=== PATIENT | female | born 1940 | race Caucasian/White ===

== ENCOUNTER 2016-12-28 15:16 | Emergency (ER) | payer MEDICAID, OTHER ==
[~2016-12-28] VITALS: Wt 58.0 kg
[~2016-12-28 15:16] MED LIST: FELO5TAB35 PO; SIMV40TA2 PO
[2016-12-28] MEDS ORDERED: ONDANSETRON 4 MG INJ IV STA (19:12)
[2016-12-28] MEDS ORDERED: morphine 4 MG/ML VIAL IV STA (19:12)
[2016-12-28 19:41] LABS: BASOPHIL # 0.1 10^3/ul (0.0-0.1); BASOPHILS % 0.7 % (0.0-2.0); EOSINOPHILS # 0.4 10^3/ul (0.0-0.5); EOSINOPHILS % 3.8 % (0.0-7.0); HEMOGLOBIN 12.9 g/dl (12.0-16.0); LYMPHOCYTES # 3.5 10^3/ul (0.8-2.9); LYMPHOCYTES % 32.3 % (15.0-51.0); MEAN CORPUSCULAR HEMOGLOBIN 29.7 pg (29.0-33.0); MEAN CORPUSCULAR HGB CONC 33.1 g/dl (32.0-37.0); MEAN CORPUSCULAR VOLUME 89.7 fl (82.0-101.0); MEAN PLATELET VOLUME 10.9 fl (7.4-10.4); MONOCYTE # 0.8 10^3/ul (0.3-0.9); MONOCYTES % 7.5 % (0.0-11.0); NEUTROPHILS % 55.4 % (39.0-77.0); PLATELET COUNT 209 10^3/UL (140-415); RED BLOOD COUNT 4.35 10^6/ul (4.20-5.40); RED CELL DISTRIBUTION WIDTH 14.3 % (11.5-14.5); WHITE BLOOD COUNT 10.8 10^3/ul (4.8-10.8)
[2016-12-28 19:44] LABS: ADD UMIC YES; UR ASCORBIC ACID NEGATIVE (NEGATIVE); UR BILIRUBIN (Dip) NEGATIVE (NEGATIVE); UR BLOOD (Dip) 1+ mg/dL (NEGATIVE); UR CLARITY CLEAR (CLEAR); UR COLOR STRAW (YELLOW); UR GLUCOSE (Dip) NEGATIVE (NEGATIVE); UR KETONES (Dip) NEGATIVE (NEGATIVE); UR LEUKOCYTE ESTERASE (Dip) TRACE Leu/ul (NEGATIVE); UR NITRITE (Dip) NEGATIVE (NEGATIVE); UR RBC 1 /HPF (0-5); UR TOTAL PROTEIN (Dip) NEGATIVE (NEGATIVE); UR UROBILINOGEN (Dip) NEGATIVE (NEGATIVE)
[2016-12-28 19:45] VITALS: TEMP 97.5
[2016-12-28 20:04] LABS: ALBUMIN 4.4 g/dl (3.3-4.9); ALBUMIN/GLOBULIN RATIO 1.07; BILIRUBIN,INDIRECT 0.2 mg/dl (0-1.1); BILIRUBIN,TOTAL 0.2 mg/dl (0.2-1.3); CALCIUM 9.5 mg/dl (8.4-10.2); CREATININE 1.12 mg/dl (0.44-1.00); POTASSIUM 4.1 mmol/L (3.5-5.1); TOTAL PROTEIN 8.5 g/dl (6.1-8.1)
[2016-12-28 20:15] LABS: TROPONIN-I 0.021 ng/ml (0.00-0.12)
--- NOTE | 2016-12-28 20:15 | RADRPT ---
PROCEDURE: CT Abdomen and Pelvis without intravenous contrast. CLINICAL INDICATION: Abdominal pain . TECHNIQUE: CT scan of the abdomen and pelvis without intravenous contrast was performed on a multi -slice CT scanner. Coronal and sagittal reformatted images were obtained from the axial source image s. Images were reviewed on a high-resolution PACS workstation. Total DLP = 339.3 mGy-cm. CTDIvol = 6.7 mGy. One or more of the following dose reduction techniques were used: Automated exposure control. Adjustment of the mA and/or kV according to patient size. Use of iterative reconstruction technique. COMPARISON: None. FINDINGS: CT abdomen and pelvis: The lung bases are clear. The heart size is normal in size. The liver is normal in size and densit y without focal mass or intrahepatic biliary dilatation. The spleen is normal in size and homogeneo us in density. The pancreas as visualized is normal. The gallbladder shows no evidence of stones or distension . The adrenal glands are normal. The kidneys are symmetrically unremarkable. No ur olithiasis, obstructive uropathy, or solid mass lesion is seen. The stomach is partially collapsed, but is grossly unremarkable. The small bowels are unremarkable. The colon and rectum are normal. There is sigmoid diverticulosis. There is no evidence of appendici tis or diverticulitis. The pelvic organs are normal. The bladder is normal. There is no abdominal or pelvic adenopathy, free fluid, free air, mass or mesenteric inflammation. The aorta is normal in caliber with calcific atherosclerosis . The osseous structures showing degen erative enthesopathy of the spine. There is old severe compression fracture of the T12 vertebra. The re is no osteolytic or osteoblastic lesions identified.. The soft tissues are within normal limits. Lack of IV and oral contrast limits sensitivity of exam. IMPRESSION: 1. Sigmoid diverticulosis without evidence of diverticulitis. 2. Old compression fracture of the T12 vertebra. 3. Otherwise unremarkable noncontrast CT abdomen and pelvis without acute pathology identified. RPTAT: [facility] .Mark Ledesma MD, MD Date Time Electronically viewed and signed by .Mark Ledesma MD, on 12/28/2016 20:15 .L/
--- NOTE | 2016-12-28 20:55 | RADRPT ---
PROCEDURE: Portable chest x-ray. CLINICAL INDICATION: 76-year of age, female. Abdominal pain. TECHNIQUE: Portable AP view of the chest. COMPARISON: None available. FINDINGS: Atherosclerotic calcification and tortuosity of thoracic aorta. Normal heart size. Lungs are clear. Negative for pleural effusion or pneumothorax. No acute bony abnormality. No abnormality is identified in the upper abdomen. IMPRESSION: Negative for evidence of an acute chest process. RPTAT: [facility] Physician Linda Date Time Electronically viewed and signed by Physician Linda on 12/28/2016 20:55 CS/
[2016-12-28] MEDS ORDERED: DOCU-144 PO (21:13)
[2016-12-28] MEDS ORDERED: HYDR-902 PO (21:13)
[2016-12-28] MEDS ORDERED: ONDA4TAB14 PO (21:13)
--- NOTE | 2016-12-28 21:14 | ERD ---
ER Documentation Chief Complaint Date/Time DATE: 12/28/16 TIME: 21:14 Chief Complaint ABD PAIN X1 WEEK, NAUSEA, HX OF PANCREATITIS ROS All systems reviewed and are negative except as per history of present illness. Medications Home Meds Active Scripts Docusate Sodium* (Colace*) 100 Mg Capsule, 100 MG PO TID, #30 CAP Prov:KIN CURRIE MD 12/28/16 Ondansetron (Ondansetron Odt) 4 Mg Tab.rapdis, 4 MG PO Q6H Y for NAUSEA AND/OR VOMITING, #10 TAB Prov:KIN CURRIE MD 12/28/16 Hydrocodone/Acetaminophen ([place] 10-325 Tablet) 1 Each Tablet, 1 TAB PO Q6H Y for PAIN, #7 TAB Prov:KIN CURRIE MD 12/28/16 Reported Medications Felodipine* (Felodipine*) 5 Mg Tab.sr.24h, 5 MG PO DAILY, TAB.SA 03/04/15 Simvastatin* (Zocor*) 40 Mg Tablet, 40 MG PO QHS, #30 TAB 03/04/15 Allergies Allergies: Coded Allergies: No Known Allergy (Unverified , 03/04/15) PMhx/Soc History of Surgery: Yes (CATARACT) Anesthesia Reaction: No Hx Neurological Disorder: No Hx Respiratory Disorders: No Hx Cardiac Disorders: Yes (htn, high cholesterol) Hx Psychiatric Problems: No Hx Miscellaneous Medical Probl: Yes (HTN, ELEV. CHOLESTEROL, GERD, DM) Hx Alcohol Use: No Hx Substance Use: No Hx Tobacco Use: No Smoking Status: Never smoker Physical Exam Vitals Vital Signs Date Time Temp Pulse Resp B/P Pulse Ox O2 Delivery O2 Flow Rate FiO2 12/28/16 19:45 97.5 62 16 179/79 97 Room Air 12/28/16 15:22 99.2 84 17 163/72 98 Physical Exam Const: [] Head: Atraumatic Eyes: Normal Conjunctiva ENT: Normal External Ears, Nose and Mouth. Neck: Full range of motion..~ No meningismus. Resp: Clear to auscultation bilaterally Cardio: Regular rate and rhythm, no murmurs Abd: Soft, non tender, non distended. Normal bowel sounds Skin: No petechiae or rashes Back: No midline or flank tenderness Ext: No cyanosis, or edema Neur: Awake and alert Psych: Normal Mood and Affect Result Diagram: 12/28/16193312/28/161933 Results 24 hrs Laboratory Tests Test 12/28/16 19:15 12/28/16 19:34 Urine Color STRAW Urine Clarity CLEAR Urine pH 5.0 Urine Specific Shel[place] 1.010 Urine Ketones NEGATIVEmg/dL Urine Nitrite NEGATIVEmg/dL Urine Bilirubin NEGATIVEmg/dL Urine Urobilinogen NEGATIVEmg/dL Urine Leukocyte Esterase TRACELeu/ul Urine Microscopic RBC 1/HPF Urine Microscopic WBC 1/HPF Urine Hemoglobin 1+mg/dL Urine Glucose NEGATIVEmg/dL Urine Total Protein NEGATIVEmg/dl White Blood Count 10.810^3/ul Red Blood Count 4.3510^6/ul Hemoglobin 12.9g/dl Hematocrit 39.0% Mean Corpuscular Volume 89.7fl Mean Corpuscular Hemoglobin 29.7pg Mean Corpuscular Hemoglobin Concent 33.1g/dl Red Cell Distribution Width 14.3% Platelet Count 56471^3/UL Mean Platelet Volume 10.9fl Neutrophils % 55.4% Lymphocytes % 32.3% Monocytes % 7.5% Eosinophils % 3.8% Basophils % 0.7% Nucleated Red Blood Cells % 0.0/100WBC Neutrophils # 6.010^3/ul Lymphocytes # 3.510^3/ul Monocytes # 0.810^3/ul Eosinophils # 0.410^3/ul Basophils # 0.110^3/ul Nucleated Red Blood Cells # 0.010^3/ul Sodium Level 144mmol/L Potassium Level 4.1mmol/L Chloride Level 106mmol/L Carbon Dioxide Level 27mmol/L Anion Gap 15 Blood Urea Nitrogen 21mg/dl Creatinine 1.12mg/dl Glucose Level 99mg/dl Calcium Level 9.5mg/dl Total Bilirubin 0.2mg/dl Direct Bilirubin 0.00mg/dl Indirect Bilirubin 0.2mg/dl Aspartate Amino Transf (AST/SGOT) 34IU/L Alanine Aminotransferase (ALT/SGPT) 40IU/L Alkaline Phosphatase 98IU/L Troponin I 0.021ng/ml Total Protein 8.5g/dl Albumin 4.4g/dl Globulin 4.10g/dl Albumin/Globulin Ratio 1.07 Lipase 239U/L Current Medications Medications (Trade) Dose Ordered Sig/Artis Route PRN Reason Start Time Stop Time Status Last Admin Dose Admin Morphine Sulfate (morphine) 4 mg ONCE STAT IV 12/28/16 19:12 12/28/16 19:14 DC 12/28/16 19:27 Ondansetron HCl (Zofran Inj) 4 mg ONCE STAT IV 12/28/16 19:12 12/28/16 19:14 DC 12/28/16 19:27 Procedures/MDM EKG read by me: Rate/Rhythm: Regular rate and rhythm at a rate of 66 Intervals: Normal Impression: No evidence of ischemia or arrhythmia Departure Diagnosis: Primary Impression: Abdominal pain Condition: Fair Patient Instructions: Abdominal Pain Referrals: CHARLES HEWITT Additional Instructions: Call your primary care doctor TOMORROW for an appointment during the next 1-2 days.See the doctor sooner or return here if your condition worsens before your appointment time. KIN CURRIE MD Dec 28, 2016 21:14
[2016-12-28 21:20] VITALS: BP 151/55; PULSE 59; RESP 18
== END 2016-12-29 03:15 | disposition home or self-care (01) ==
LOC: E/R 15:16
DX: R10.9 Unspecified abdominal pain (principal); I10 Essential (primary) hypertension; E11.9 Type 2 diabetes mellitus without complications
CPT/HCPCS: 71010; 74176; 80053; 81001; 83690; 84484; 85025; 96374; 96375; J2270; J2405; Z7502; Z7610; 93005

== ENCOUNTER 2017-04-09 10:33 | Emergency (ER) | END 2017-04-09 11:14 | disposition left against medical advice (07) ==

== ENCOUNTER 2017-05-15 10:49 | Emergency (ER) | END 2017-05-15 15:50 | disposition home or self-care (01) ==

== ENCOUNTER 2017-08-09 16:02 | Emergency (ER) | END 2017-08-09 17:38 | disposition home or self-care (01) ==

== ENCOUNTER 2017-10-31 09:20 | Emergency (ER) | END 2017-10-31 10:26 | disposition home or self-care (01) ==

== ENCOUNTER 2017-11-05 13:24 | Emergency (ER) | END 2017-11-05 14:14 | disposition home or self-care (01) ==

== ENCOUNTER 2017-11-19 14:31 | Emergency (ER) | END 2017-11-19 16:48 | disposition home or self-care (01) ==